=== PATIENT | female | born 1950 | race African-American/Black ===

== ENCOUNTER 2024-03-21 15:39 | Inpatient (IN) | payer BC, MEDICARE ==
[~2024-03-21] VITALS: Ht 167.6 cm; Wt 132.4 kg
[2024-03-21 17:53] LABS: DIFFERENTIAL COMMENT 1; HEMATOCRIT. 42.8 % (36.0-48.0); HEMOGLOBIN. 13.7 g/dL (12.0-16.0); MEAN CORPUSCULAR HEMOGLOBIN 27.9 pg (28.0-32.0); MEAN CORPUSCULAR HGB CONC 32.2 g/dL (31.0-37.0); MEAN CORPUSCULAR VOLUME 86.9 fL (81.0-99.0); MEAN PLATELET VOLUME 9.3 fl (7.4-10.4); PLATELET 215 x1000/uL (130-400); RED BLOOD CELL COUNT 4.92 mill/uL (4.2-5.4); RED CELL DISTRIBUTION WIDTH 14.8 % (11.6-14.6)
[2024-03-21 17:55] LABS: CHLORIDE 109 mEq/L (98-107); POTASSIUM 3.6 mEq/L (3.5-5.1)
[2024-03-21 17:56] LABS: CARBON DIOXIDE 25 mEq/L (21-32); SODIUM 142 mEq/L (136-145)
[2024-03-21 17:57] LABS: CALCIUM 9.7 mg/dL (8.7-10.4)
[2024-03-21] MEDS: ACETAMINOPHEN 325MG TABLET PO ONE (17:58)
[2024-03-21] MEDS: LIDOCAINE 5% PATCH TOP SCH (17:58)
[2024-03-21 18:01] LABS: CREATININE 1.1 mg/dL (0.6-1.0); GLUCOSE 111 mg/dL (70-105)
[2024-03-21 18:02] LABS: UREA NITROGEN BLOOD 13 mg/dL (9-23)
[2024-03-21 18:03] LABS: ALANINE AMINOTRANSFERASE 19 IU/L (10-49); ALBUMIN 4.3 g/dL (3.2-4.8); ASPARTATE AMINOTRANSFERASE 51 IU/L (<34)
[2024-03-21 18:04] LABS: BILIRUBIN TOTAL 1.3 mg/dL (0.1-1.0); CREATINE KINASE > 1300 IU/L (34-145); PROTEIN TOTAL 8.1 g/dL (6.0-8.3)
[2024-03-21] MEDS ORDERED: SODIUM CHLORIDE 0.9% 1,000 ML IV ONE (18:15)
[2024-03-21 18:20] LABS: PLATELET ESTIMATE NORMAL
[2024-03-21 18:21] LABS: ANISOCYTOSIS 1+
[2024-03-22 04:00] VITALS: BP 144/59; PULSE 73; RESP 19; TEMP 35.78064; TEMP 35.8064; O2SAT 100
[2024-03-22] MEDS ORDERED: IPRATROPIUM/ALBUTEROL 0.5-3(2.5)MG/3ML NEB HHN PRN (07:00)
[2024-03-22] MEDS ORDERED: ONDANSETRON HCL 4MG/2ML INJ IV PRN (07:00)
[2024-03-22] MEDS ORDERED: CLONIDINE 0.1MG TABLET PO PRN (07:00)
[2024-03-22] MEDS ORDERED: ACETAMINOPHEN 325MG TABLET PO PRN (07:00)
[2024-03-22] MEDS ORDERED: DOCUSATE SODIUM 100MG CAPSULE PO PRN (07:00)
[2024-03-22 08:00] VITALS: BP 116/53; PULSE 72; RESP 18; TEMP 37.503; O2SAT 100
[2024-03-22] MEDS: SODIUM CHLORIDE 0.9% 1,000 ML IV SCH (08:00)
[2024-03-22 11:56] LABS: CHLORIDE 109 mEq/L (98-107); POTASSIUM 3.4 mEq/L (3.5-5.1); SODIUM 141 mEq/L (136-145)
[2024-03-22 11:57] LABS: CARBON DIOXIDE 25 mEq/L (21-32)
[2024-03-22 11:58] LABS: CALCIUM 9.3 mg/dL (8.7-10.4)
[2024-03-22 12:00] VITALS: BP 115/51; PULSE 68; RESP 18; TEMP 37.89192; O2SAT 100
[2024-03-22 12:02] LABS: GLUCOSE 123 mg/dL (70-105); UREA NITROGEN BLOOD 13 mg/dL (9-23)
[2024-03-22 12:15] LABS: CREATINE KINASE 2767 IU/L (34-145)
[2024-03-22 12:22] LABS: HEPATITIS B SURFACE ANTIGEN NEGATIVE (Negative)
[2024-03-22 12:43] LABS: HEPATITIS C AB NON REACTIVE (Neg) (Negative)
[2024-03-22 16:00] VITALS: BP 138/55; PULSE 75; RESP 18; TEMP 36.78072; O2SAT 100
[2024-03-22 17:02] LABS: BASOPHILS % 0.2 % (0.0-2.0); EOSINOPHILS % 2.4 % (0.0-5.0); HEMATOCRIT. 37.6 % (36.0-48.0); HEMOGLOBIN. 11.8 g/dL (12.0-16.0); LYMPHOCYTES % 16.2 % (20.0-50.0); MEAN CORPUSCULAR HEMOGLOBIN 27.7 pg (28.0-32.0); MEAN CORPUSCULAR HGB CONC 31.5 g/dL (31.0-37.0); MEAN CORPUSCULAR VOLUME 87.9 fL (81.0-99.0); MEAN PLATELET VOLUME 9.5 fl (7.4-10.4); MONOCYTES % 8.8 % (2.0-8.0); NEUTROPHILS % 72.4 % (40.0-76.0); PLATELET 192 x1000/uL (130-400); RED BLOOD CELL COUNT 4.27 mill/uL (4.2-5.4); RED CELL DISTRIBUTION WIDTH 14.9 % (11.6-14.6); WHITE BLOOD COUNT 11.9 x1000/uL (4.5-11.0)
[2024-03-22 17:31] LABS: CREATINE KINASE 2282 IU/L (34-145)
[2024-03-22 20:00] VITALS: BP 144/43; PULSE 76; RESP 20; TEMP 36.72516; O2SAT 96
[2024-03-22] MEDS: POTASSIUM CHLORIDE 20MEQ TABLET SR PO NR (21:25)
[2024-03-23] VITALS: BP 141/49; PULSE 66; RESP 20; TEMP 36.22512; O2SAT 98
[2024-03-23 04:00] VITALS: BP 147/53; PULSE 62; RESP 20; TEMP 37.28076; O2SAT 100
[2024-03-23 08:00] VITALS: BP 150/88; PULSE 66; RESP 18; TEMP 36.9474; O2SAT 98
[2024-03-23 09:12] LABS: CLARITY URINE CLEAR (CLEAR); COLOR URINE YELLOW (YELLOW); GLUCOSE URINE NEGATIVE (NEGATIVE); KETONES URINE NEGATIVE (NEGATIVE); LEUKOCYTE ESTERASE URINE 1+ (NEGATIVE); NITRITE URINE NEGATIVE (NEGATIVE); OCCULT BLOOD URINE NEGATIVE (NEGATIVE); PH URINE 5.5 (4.5-8.0); PROTEIN URINE NEGATIVE (NEGATIVE); SPECIFIC GRAVITY URINE 1.015 (1.005-1.030); UROBILINOGEN URINE 0.2 E.U./dL (0.2-1.0)
[2024-03-23 10:58] LABS: SQUAMOUS EPITHELIAL CELL URINE 1+ /lpf (RARE/1+)
[2024-03-23 10:59] LABS: BACTERIA URINE TRACE
[2024-03-23 11:02] LABS: RBC URINE 0-2 /hpf (0-2)
[2024-03-23 12:00] VITALS: BP 113/43; PULSE 70; RESP 18; TEMP 36.50292; O2SAT 98
[2024-03-23 12:55] LABS: BASOPHILS % 0.4 % (0.0-2.0); EOSINOPHILS % 2.2 % (0.0-5.0); HEMATOCRIT. 38.3 % (36.0-48.0); HEMOGLOBIN. 12.1 g/dL (12.0-16.0); LYMPHOCYTES % 17.9 % (20.0-50.0); MEAN CORPUSCULAR HEMOGLOBIN 27.4 pg (28.0-32.0); MEAN CORPUSCULAR HGB CONC 31.6 g/dL (31.0-37.0); MEAN CORPUSCULAR VOLUME 86.9 fL (81.0-99.0); MEAN PLATELET VOLUME 9.6 fl (7.4-10.4); MONOCYTES % 8.1 % (2.0-8.0); NEUTROPHILS % 71.4 % (40.0-76.0); PLATELET 190 x1000/uL (130-400); RED BLOOD CELL COUNT 4.41 mill/uL (4.2-5.4); RED CELL DISTRIBUTION WIDTH 15.2 % (11.6-14.6); WHITE BLOOD COUNT 10.4 x1000/uL (4.5-11.0)
[2024-03-23 13:12] LABS: CHLORIDE 110 mEq/L (98-107); POTASSIUM 4.2 mEq/L (3.5-5.1); SODIUM 141 mEq/L (136-145)
[2024-03-23 13:13] LABS: CALCIUM 9.3 mg/dL (8.7-10.4); CARBON DIOXIDE 25 mEq/L (21-32)
[2024-03-23 13:18] LABS: GLUCOSE 145 mg/dL (70-105); UREA NITROGEN BLOOD 12 mg/dL (9-23)
[2024-03-23 13:20] LABS: CREATINE KINASE 1233 IU/L (34-145)
[2024-03-23 16:00] VITALS: BP 134/95; PULSE 65; RESP 18; TEMP 37.2252; O2SAT 98
[2024-03-23 20:00] VITALS: BP 136/56; PULSE 67; RESP 20; TEMP 37.11408; O2SAT 100
[2024-03-24] VITALS: BP 146/55; PULSE 64; RESP 20; TEMP 36.72516; O2SAT 96
[2024-03-24 08:00] VITALS: BP 142/51; PULSE 64; RESP 18; TEMP 36.50292; O2SAT 99
[2024-03-24 08:39] LABS: CHLORIDE 111 mEq/L (98-107); POTASSIUM 4.2 mEq/L (3.5-5.1); SODIUM 143 mEq/L (136-145)
[2024-03-24 08:40] LABS: BASOPHILS % 0.4 % (0.0-2.0); CALCIUM 9.1 mg/dL (8.7-10.4); CARBON DIOXIDE 27 mEq/L (21-32); EOSINOPHILS % 2.1 % (0.0-5.0); HEMATOCRIT. 37.9 % (36.0-48.0); HEMOGLOBIN. 12.1 g/dL (12.0-16.0); LYMPHOCYTES % 22.9 % (20.0-50.0); MEAN CORPUSCULAR HEMOGLOBIN 27.6 pg (28.0-32.0); MEAN CORPUSCULAR HGB CONC 31.9 g/dL (31.0-37.0); MEAN CORPUSCULAR VOLUME 86.5 fL (81.0-99.0); MEAN PLATELET VOLUME 9.1 fl (7.4-10.4); MONOCYTES % 8.8 % (2.0-8.0); NEUTROPHILS % 65.8 % (40.0-76.0); PLATELET 173 x1000/uL (130-400); RED BLOOD CELL COUNT 4.38 mill/uL (4.2-5.4); RED CELL DISTRIBUTION WIDTH 15.1 % (11.6-14.6); WHITE BLOOD COUNT 8.9 x1000/uL (4.5-11.0)
[2024-03-24 08:45] LABS: CREATININE 0.9 mg/dL (0.6-1.0); GLUCOSE 104 mg/dL (70-105); UREA NITROGEN BLOOD 12 mg/dL (9-23)
[2024-03-24 08:47] LABS: CREATINE KINASE 652 IU/L (34-145); PHOSPHORUS 2.5 mg/dL (2.5-4.9)
[2024-03-24 12:00] VITALS: BP 134/63; PULSE 62; RESP 17; TEMP 36.78072; O2SAT 98
[2024-03-24 16:00] VITALS: BP 141/51; PULSE 64; RESP 18; TEMP 36.78072; O2SAT 98
[2024-03-24 20:00] VITALS: BP 132/60; PULSE 68; RESP 18; TEMP 36.28068; O2SAT 100
[2024-03-25] VITALS: BP 149/55; PULSE 65; RESP 18; TEMP 37.05852; O2SAT 100
[2024-03-25 04:00] VITALS: BP 160/54; PULSE 63; RESP 18; TEMP 36.3918; O2SAT 100
[2024-03-25 08:00] VITALS: BP 152/53; PULSE 61; RESP 20; TEMP 36.72516; O2SAT 100
[2024-03-25 09:07] LABS: BASOPHILS % 0.5 % (0.0-2.0); EOSINOPHILS % 1.9 % (0.0-5.0); HEMATOCRIT. 38.7 % (36.0-48.0); HEMOGLOBIN. 12.2 g/dL (12.0-16.0); LYMPHOCYTES % 25.3 % (20.0-50.0); MEAN CORPUSCULAR HEMOGLOBIN 28.4 pg (28.0-32.0); MEAN CORPUSCULAR HGB CONC 31.5 g/dL (31.0-37.0); MEAN PLATELET VOLUME 8.9 fl (7.4-10.4); MONOCYTES % 7.6 % (2.0-8.0); NEUTROPHILS % 64.7 % (40.0-76.0); PLATELET 172 x1000/uL (130-400); RED CELL DISTRIBUTION WIDTH 15.1 % (11.6-14.6)
[2024-03-25 09:14] LABS: CHLORIDE 109 mEq/L (98-107); POTASSIUM 4.1 mEq/L (3.5-5.1); SODIUM 140 mEq/L (136-145)
[2024-03-25 09:15] LABS: CALCIUM 9.3 mg/dL (8.7-10.4); CARBON DIOXIDE 25 mEq/L (21-32)
[2024-03-25 09:20] LABS: CREATINE KINASE 339 IU/L (34-145); GLUCOSE 99 mg/dL (70-105); UREA NITROGEN BLOOD 10 mg/dL (9-23)
[2024-03-25 09:22] LABS: PHOSPHORUS 2.8 mg/dL (2.5-4.9)
[2024-03-25 11:53] VITALS: BP 142/48; PULSE 66; RESP 20; TEMP 36.72516; O2SAT 96
[2024-03-25] MEDS: ENOXAPARIN 150MG/ML SYR SUBCUT NR (12:00)
[2024-03-25 15:46] VITALS: BP 132/87; PULSE 69; RESP 20; TEMP 36.72516; O2SAT 96
[2024-03-25 18:51] LABS: PROTHROMBIN TIME 11.2 sec (9.6-11.0)
[2024-03-25 20:00] VITALS: BP 119/49; PULSE 69; RESP 19; TEMP 37.05852; O2SAT 100
[2024-03-25] MEDS: ERGOCALCIFEROL 50000UNITS CAPSULE PO SCH (21:16)
[2024-03-26] VITALS: BP 114/48; PULSE 64; RESP 19; TEMP 36.44736; O2SAT 98
[2024-03-26] MEDS: ENOXAPARIN 150MG/ML SYR SUBCUT SCH (00:34)
[2024-03-26 04:00] VITALS: BP 118/49; PULSE 65; RESP 19; TEMP 36.61404; O2SAT 100
[2024-03-26 08:00] VITALS: BP 139/69; PULSE 63; RESP 18; TEMP 36.72516; O2SAT 98
[2024-03-26 09:02] LABS: CHLORIDE 111 mEq/L (98-107); POTASSIUM 4.1 mEq/L (3.5-5.1); SODIUM 142 mEq/L (136-145)
[2024-03-26 09:03] LABS: CALCIUM 8.8 mg/dL (8.7-10.4); CARBON DIOXIDE 25 mEq/L (21-32)
[2024-03-26 09:05] LABS: BASOPHILS % 0.4 % (0.0-2.0); EOSINOPHILS % 2.6 % (0.0-5.0); HEMATOCRIT. 38.1 % (36.0-48.0); HEMOGLOBIN. 11.9 g/dL (12.0-16.0); LYMPHOCYTES % 25.8 % (20.0-50.0); MEAN CORPUSCULAR HEMOGLOBIN 27.4 pg (28.0-32.0); MEAN CORPUSCULAR HGB CONC 31.2 g/dL (31.0-37.0); MEAN CORPUSCULAR VOLUME 87.7 fL (81.0-99.0); MEAN PLATELET VOLUME 8.9 fl (7.4-10.4); MONOCYTES % 9.2 % (2.0-8.0); PLATELET 171 x1000/uL (130-400); RED BLOOD CELL COUNT 4.34 mill/uL (4.2-5.4); RED CELL DISTRIBUTION WIDTH 14.7 % (11.6-14.6); WHITE BLOOD COUNT 8.6 x1000/uL (4.5-11.0)
[2024-03-26 09:08] LABS: GLUCOSE 101 mg/dL (70-105); UREA NITROGEN BLOOD 11 mg/dL (9-23)
[2024-03-26 09:09] LABS: CREATINE KINASE 188 IU/L (34-145)
[2024-03-26 09:10] LABS: PHOSPHORUS 2.7 mg/dL (2.5-4.9)
[2024-03-26] MEDS: LEVOFLOXACIN 250MG TABLET PO SCH (10:36)
[2024-03-26 12:00] VITALS: BP 142/50; PULSE 67; RESP 18; TEMP 36.83628; O2SAT 96
[2024-03-26 16:00] VITALS: BP 125/47; PULSE 60; RESP 18; TEMP 36.61404; O2SAT 94
[2024-03-26 20:00] VITALS: BP 116/56; PULSE 66; RESP 18; TEMP 36.3918; O2SAT 100
[2024-03-27] VITALS: BP 124/58; PULSE 77; RESP 18; TEMP 37.11408; O2SAT 99
[2024-03-27 04:00] VITALS: BP 148/62; PULSE 62; RESP 18; TEMP 36.50292; O2SAT 96
[2024-03-27 08:00] VITALS: BP 171/64; PULSE 59; RESP 19; TEMP 36.83628; O2SAT 99
[2024-03-27 12:00] VITALS: BP 133/48; PULSE 62; RESP 18; TEMP 36.3918; O2SAT 97
[2024-03-27 16:00] VITALS: BP 132/49; PULSE 64; RESP 18; TEMP 36.89184; O2SAT 97
[2024-03-27 20:00] VITALS: BP 135/67; PULSE 64; RESP 19; TEMP 36.50292; O2SAT 99
[2024-03-28] VITALS: BP 130/75; PULSE 78; RESP 19; TEMP 37.05852; O2SAT 98
[2024-03-28 04:00] VITALS: BP 140/68; PULSE 68; RESP 19; TEMP 36.50292; O2SAT 99
[2024-03-28 08:00] VITALS: BP 142/59; PULSE 56; RESP 19; TEMP 36.78072; O2SAT 97
[2024-03-28 16:00] VITALS: BP 125/52; PULSE 62; RESP 17; TEMP 35.89176; O2SAT 98
[2024-03-28 20:00] VITALS: BP 123/56; PULSE 61; RESP 19; TEMP 36.50292; O2SAT 97
[2024-03-29] VITALS: BP 118/62; PULSE 72; RESP 19; TEMP 37.16964; O2SAT 98
[2024-03-29 04:00] VITALS: BP_SYST 128; BP_SYST 145; BP_DIAS 64; BP_DIAS 68; PULSE 74; RESP 19; TEMP 37.11408; O2SAT 97
[2024-03-29 12:00] VITALS: BP 126/51; PULSE 61; RESP 18; TEMP 36.3918; O2SAT 100
[2024-03-29 16:00] VITALS: BP 129/54; PULSE 63; RESP 19; TEMP 36.50292; O2SAT 98
[2024-03-30] VITALS: BP 139/56; PULSE 61; RESP 19; TEMP 37.11408; O2SAT 98
[2024-03-30 04:00] VITALS: BP 130/51; PULSE 87; RESP 18; TEMP 36.89184; O2SAT 100
[2024-03-30 08:00] VITALS: BP 147/52; PULSE 53; RESP 19; TEMP 36.3918; O2SAT 97
[2024-03-30 12:00] VITALS: BP 128/51; PULSE 60; RESP 20; TEMP 36.50292; O2SAT 98
[2024-03-30 16:00] VITALS: BP 121/58; PULSE 61; RESP 19; TEMP 36.28068; O2SAT 99
[2024-03-30 20:00] VITALS: BP 158/50; PULSE 64; RESP 20; TEMP 36.72516; O2SAT 100
[2024-03-31] VITALS: BP 118/55; PULSE 83; RESP 20; TEMP 35.66952; O2SAT 95
[2024-03-31 04:00] VITALS: BP 141/49; PULSE 60; RESP 20; TEMP 35.78064; O2SAT 96
[2024-03-31 11:39] LABS: VITAMIN B12 SERUM 432 pg/mL (211-911)
[2024-03-31 12:00] VITALS: BP 134/55; PULSE 56; RESP 18; TEMP 36.50292; O2SAT 95
[2024-03-31] MEDS: ACETAMINOPHEN 325MG TABLET PO PRN (15:32)
[2024-03-31 16:00] VITALS: BP 132/49; PULSE 64; RESP 18; TEMP 36.3918; O2SAT 97
[2024-03-31 20:00] VITALS: BP 145/50; PULSE 67; RESP 18; TEMP 36.33624; O2SAT 99
[2024-04-01] VITALS: BP 133/40; PULSE 57; RESP 19; TEMP 36.55848; O2SAT 98
[2024-04-01 04:00] VITALS: BP 145/58; PULSE 60; RESP 19; TEMP 36.3918; O2SAT 99
[2024-04-01 08:00] VITALS: BP 36/50; PULSE 58; RESP 17; TEMP 36.50292; O2SAT 97
[2024-04-01 08:35] LABS: BASOPHILS % 0.5 % (0.0-2.0); EOSINOPHILS % 2.3 % (0.0-5.0); HEMATOCRIT. 40.8 % (36.0-48.0); LYMPHOCYTES % 28.4 % (20.0-50.0); MEAN CORPUSCULAR HEMOGLOBIN 27.8 pg (28.0-32.0); MEAN CORPUSCULAR HGB CONC 31.8 g/dL (31.0-37.0); MEAN CORPUSCULAR VOLUME 87.6 fL (81.0-99.0); MEAN PLATELET VOLUME 9.1 fl (7.4-10.4); MONOCYTES % 7.8 % (2.0-8.0); PLATELET 250 x1000/uL (130-400); RED BLOOD CELL COUNT 4.66 mill/uL (4.2-5.4); WHITE BLOOD COUNT 7.9 x1000/uL (4.5-11.0)
[2024-04-01 08:44] LABS: CARBON DIOXIDE 25 mEq/L (21-32); CHLORIDE 109 mEq/L (98-107); SODIUM 141 mEq/L (136-145)
[2024-04-01 08:45] LABS: CALCIUM 9.2 mg/dL (8.7-10.4)
[2024-04-01 08:50] LABS: GLUCOSE 99 mg/dL (70-105); UREA NITROGEN BLOOD 16 mg/dL (9-23)
[2024-04-01 08:52] LABS: CREATINE KINASE 60 IU/L (34-145)
[2024-04-01] MEDS: CYANOCOBALAMIN 1000MCG/ML VIAL IM SCH (11:17)
[2024-04-01 12:00] VITALS: BP 125/47; PULSE 55; RESP 18; TEMP 35.89176; O2SAT 100
[2024-04-01 12:50] LABS: FOLIC ACID (FOLATE) SERUM 12.47 ng/mL (>5.38)
[2024-04-01 16:00] VITALS: BP 133/45; PULSE 60; RESP 17; TEMP 35.8362; O2SAT 98
[2024-04-01 20:00] VITALS: BP 132/56; PULSE 64; RESP 19; TEMP 36.78072; O2SAT 99
[2024-04-02] VITALS: BP 132/46; PULSE 60; RESP 19; TEMP 36.28068; O2SAT 97
[2024-04-02 04:00] VITALS: BP 123/46; PULSE 60; RESP 19; TEMP 36.28068; O2SAT 99
[2024-04-02 08:00] VITALS: BP 115/49; PULSE 48; RESP 20; TEMP 36.28068; O2SAT 98
[2024-04-02 12:00] VITALS: BP 129/50; PULSE 62; RESP 20; TEMP 36.61404; O2SAT 97
[2024-04-02 16:00] VITALS: BP 118/50; PULSE 67; RESP 20; TEMP 36.44736; O2SAT 98
[2024-04-02 20:00] VITALS: BP 128/45; PULSE 62; RESP 19; TEMP 36.3918; O2SAT 96
[2024-04-03] VITALS: BP 140/49; PULSE 56; RESP 19; TEMP 36.3918; O2SAT 100
[2024-04-03 04:00] VITALS: BP 138/48; PULSE 56; RESP 19; TEMP 36.55848; O2SAT 100
[2024-04-03 08:00] VITALS: BP 136/48; PULSE 56; RESP 20; TEMP 36.33624; O2SAT 100
[2024-04-03 10:38] LABS: BASOPHILS % 0.4 % (0.0-2.0); EOSINOPHILS % 1.7 % (0.0-5.0); HEMATOCRIT. 38.1 % (36.0-48.0); HEMOGLOBIN. 12.2 g/dL (12.0-16.0); LYMPHOCYTES % 22.9 % (20.0-50.0); MEAN CORPUSCULAR HEMOGLOBIN 28.1 pg (28.0-32.0); MEAN CORPUSCULAR VOLUME 87.9 fL (81.0-99.0); MEAN PLATELET VOLUME 8.7 fl (7.4-10.4); MONOCYTES % 6.9 % (2.0-8.0); NEUTROPHILS % 68.1 % (40.0-76.0); PLATELET 231 x1000/uL (130-400); RED BLOOD CELL COUNT 4.33 mill/uL (4.2-5.4); RED CELL DISTRIBUTION WIDTH 15.4 % (11.6-14.6); WHITE BLOOD COUNT 8.5 x1000/uL (4.5-11.0)
[2024-04-03 11:01] LABS: CHLORIDE 110 mEq/L (98-107); SODIUM 140 mEq/L (136-145)
[2024-04-03 11:03] LABS: CALCIUM 9.4 mg/dL (8.7-10.4); CARBON DIOXIDE 24 mEq/L (21-32)
[2024-04-03 11:07] LABS: CREATININE 0.9 mg/dL (0.6-1.0)
[2024-04-03 11:08] LABS: GLUCOSE 120 mg/dL (70-105); UREA NITROGEN BLOOD 13 mg/dL (9-23)
[2024-04-03 12:00] VITALS: BP 132/48; PULSE 61; RESP 19; TEMP 36.3918; O2SAT 97
[2024-04-03 16:00] VITALS: BP 148/47; PULSE 61; RESP 19; TEMP 36.3918; O2SAT 100
[2024-04-03 20:00] VITALS: BP 152/51; PULSE 60; RESP 20; TEMP 36.78072; O2SAT 100
[2024-04-04] VITALS: BP 163/51; PULSE 61; RESP 20; TEMP 36.72516; O2SAT 98
[2024-04-04 04:00] VITALS: BP 147/70; PULSE 57; RESP 20; TEMP 36.44736; O2SAT 97
[2024-04-04 08:00] VITALS: BP 138/51; PULSE 60; RESP 20; TEMP 36.61404; O2SAT 97
[2024-04-04 11:38] VITALS: BP 128/49; PULSE 60; RESP 19; TEMP 36.61404; O2SAT 97
[2024-04-04 16:00] VITALS: BP 132/51; PULSE 66; RESP 20; TEMP 36.72516; O2SAT 96
[2024-04-04 20:00] VITALS: BP 119/44; PULSE 58; RESP 18; TEMP 35.94732; O2SAT 95
[2024-04-05] VITALS: BP 127/45; PULSE 61; RESP 18; TEMP 36.00288; O2SAT 97
[2024-04-05 08:00] VITALS: BP 129/47; PULSE 53; RESP 18; TEMP 36.16956; O2SAT 100
[2024-04-05 12:00] VITALS: BP 120/40; PULSE 60; RESP 18; TEMP 36.28068; O2SAT 100
[2024-04-05 16:00] VITALS: BP 121/48; PULSE 57; RESP 18; TEMP 36.50292; O2SAT 100
[2024-04-05 20:00] VITALS: BP 126/41; PULSE 64; RESP 17; TEMP 36.50292; O2SAT 100
[2024-04-06] VITALS: BP 117/69; PULSE 81; RESP 17; TEMP 36.50292; O2SAT 98
[2024-04-06 04:00] VITALS: BP 146/42; PULSE 63; RESP 18; TEMP 37.11408; O2SAT 96
[2024-04-06 08:00] VITALS: BP 133/59; PULSE 58; RESP 17; TEMP 36.89184; O2SAT 98
[2024-04-06 12:00] VITALS: BP 96/79; PULSE 72; RESP 18; TEMP 37.00296; O2SAT 99
[2024-04-06 16:40] VITALS: BP 138/45; PULSE 64; RESP 17; TEMP 36.89184; O2SAT 98
[2024-04-06 20:00] VITALS: BP 124/50; PULSE 66; RESP 18; TEMP 36.72516; O2SAT 100
[2024-04-07] VITALS: BP 119/42; PULSE 60; RESP 18; TEMP 36.55848; O2SAT 100
[2024-04-07 04:00] VITALS: BP 124/43; PULSE 58; RESP 18; TEMP 36.72516; O2SAT 100
[2024-04-07 08:00] VITALS: BP 116/40; PULSE 76; RESP 18; TEMP 36.28068; O2SAT 96
[2024-04-07 12:00] VITALS: BP 132/62; PULSE 66; RESP 18; TEMP 36.114; O2SAT 95
[2024-04-07 16:00] VITALS: BP 122/64; PULSE 77; RESP 18; TEMP 36.114; O2SAT 96
[2024-04-07 20:00] VITALS: BP 129/43; PULSE 60; RESP 20; TEMP 36.61404; O2SAT 96
[2024-04-08] VITALS: BP 133/55; PULSE 61; RESP 20; TEMP 36.72516; O2SAT 100
[2024-04-08 04:00] VITALS: BP 140/46; PULSE 56; RESP 20; TEMP 36.61404; O2SAT 98
[2024-04-08 08:00] VITALS: BP 134/47; PULSE 54; RESP 20; TEMP 36.114; O2SAT 98
[2024-04-08 12:00] VITALS: BP 123/48; PULSE 57; RESP 20; TEMP 36.28068; O2SAT 99
[2024-04-08 16:00] VITALS: BP 121/49; PULSE 54; RESP 19; TEMP 36.114; O2SAT 98
[2024-04-08 20:00] VITALS: BP 110/42; PULSE 63; RESP 20; TEMP 35.72508; O2SAT 100
[2024-04-09] VITALS: BP 130/49; PULSE 65; RESP 20; TEMP 36.50292; O2SAT 100
[2024-04-09 04:00] VITALS: BP 126/53; PULSE 58; RESP 20; TEMP 36.72516; O2SAT 95
[2024-04-09 08:00] VITALS: BP 129/48; PULSE 57; RESP 20; TEMP 36.50292; O2SAT 100
[2024-04-09 12:00] VITALS: BP 136/59; PULSE 60; RESP 20; TEMP 37.2252; O2SAT 98
[2024-04-09 16:00] VITALS: BP 132/50; PULSE 59; RESP 20; TEMP 36.28068; O2SAT 100
[2024-04-09 20:00] VITALS: BP 118/43; PULSE 61; RESP 20; TEMP 36.3918; O2SAT 98
[2024-04-10] VITALS: BP 129/45; PULSE 58; RESP 20; TEMP 35.78064; O2SAT 95
[2024-04-10 04:00] VITALS: BP 129/55; PULSE 54; RESP 20; TEMP 35.89176; O2SAT 100
[2024-04-10 08:00] VITALS: BP 131/48; PULSE 54; RESP 19; TEMP 35.2806; O2SAT 98
[2024-04-10 12:00] VITALS: BP 122/44; PULSE 60; RESP 19; TEMP 36.61404; O2SAT 100
[2024-04-10 16:00] VITALS: BP 122/44; PULSE 62; RESP 19; TEMP 36.61404; O2SAT 96
[2024-04-10 20:00] VITALS: BP 120/45; PULSE 83; RESP 18; TEMP 36.28068; O2SAT 96
[2024-04-11] VITALS: BP 114/42; PULSE 56; RESP 18; TEMP 37.05852; O2SAT 96
[2024-04-11 04:00] VITALS: BP 130/52; PULSE 50; RESP 18; TEMP 36.83628; O2SAT 98
[2024-04-11 08:00] VITALS: BP 151/55; PULSE 51; RESP 20; TEMP 35.89176; O2SAT 99
[2024-04-11 12:00] VITALS: BP 125/50; PULSE 56; RESP 20; TEMP 35.50284; O2SAT 99
[2024-04-11 16:00] VITALS: BP 120/50; PULSE 60; RESP 20; TEMP 37.16964; O2SAT 98
[2024-04-11] MEDS: ENOXAPARIN 150MG/ML SYR SUBCUT SCH (22:30)
[2024-04-12] VITALS: BP 141/47; PULSE 58; RESP 20; TEMP 35.89176; O2SAT 96
[2024-04-12 04:00] VITALS: BP 169/58; PULSE 61; RESP 18; TEMP 35.78064; O2SAT 97
[2024-04-12 08:00] VITALS: BP 110/73; PULSE 61; RESP 18; TEMP 36.72516; O2SAT 97
[2024-04-12 16:00] VITALS: BP 125/51; PULSE 66; RESP 17; TEMP 36.61404; O2SAT 97
[2024-04-12 20:00] VITALS: BP 118/45; PULSE 87; RESP 19; TEMP 36.3918; O2SAT 98
[2024-04-13 04:00] VITALS: BP 126/52; PULSE 62; RESP 18; TEMP 36.44736; O2SAT 97
[2024-04-13 08:00] VITALS: BP 130/45; PULSE 56; RESP 19; TEMP 35.72508; O2SAT 98
[2024-04-13 16:00] VITALS: BP 114/78; PULSE 59; RESP 19; TEMP 36.50292; O2SAT 99
[2024-04-13 20:00] VITALS: BP 119/43; PULSE 61; RESP 17; TEMP 36.3918; O2SAT 99
[2024-04-14] VITALS: BP 123/75; PULSE 75; RESP 19; TEMP 36.89184; O2SAT 100
[2024-04-14 04:00] VITALS: BP 136/83; PULSE 81; RESP 17; TEMP 36.114; O2SAT 99
[2024-04-14 08:00] VITALS: BP 141/48; PULSE 56; RESP 18; TEMP 36.50292; O2SAT 95
[2024-04-14 12:00] VITALS: BP 136/49; PULSE 56; RESP 19; TEMP 36.28068; O2SAT 100
[2024-04-14 20:00] VITALS: BP 110/44; PULSE 58; RESP 19; TEMP 36.55848; O2SAT 99
[2024-04-15] VITALS: BP 123/53; PULSE 57; RESP 19; TEMP 36.72516; O2SAT 98
[2024-04-15 04:00] VITALS: BP 138/49; PULSE 53; RESP 19; TEMP 36.6696; O2SAT 98
[2024-04-15 08:00] VITALS: BP 134/80; PULSE 56; RESP 19; TEMP 36.3918; O2SAT 99
[2024-04-15 12:00] VITALS: BP 120/54; PULSE 58; RESP 18; TEMP 35.72508; O2SAT 99
[2024-04-15 16:00] VITALS: BP 126/49; PULSE 62; RESP 18; TEMP 36.3918; O2SAT 100
[2024-04-15 20:00] VITALS: BP 115/46; PULSE 83; RESP 18; TEMP 36.28068; O2SAT 99
[2024-04-16] VITALS: BP 119/42; PULSE 60; RESP 18; TEMP 35.72508; O2SAT 99
[2024-04-16 04:00] VITALS: BP 137/52; PULSE 60; RESP 18; TEMP 35.33616; O2SAT 99
[2024-04-16 08:00] VITALS: BP 120/44; PULSE 54; RESP 20; TEMP 36.55848; O2SAT 97
[2024-04-16 12:00] VITALS: BP 117/50; PULSE 56; RESP 20; TEMP 36.3918; O2SAT 98
[2024-04-16 16:00] VITALS: BP 115/79; PULSE 53; RESP 20; TEMP 35.94732; O2SAT 100
[2024-04-16 17:33] VITALS: BP 117/50; PULSE 56; TEMP 97.5; O2SAT 98
== END 2024-04-16 18:46 | DRG 558 ==
LOC: ER 15:39 → EDBEDREQ 22:55 → 6EST 03-22 03:29 → UNDOADMIN 03-22 03:29 → UNDODISIN 04-16 18:39
PROVIDERS: ADMIT Family Medicine Adult Medicine; ATTEND Family Medicine Adult Medicine
DX: M62.82 Rhabdomyolysis (principal); G82.20 Paraplegia, unspecified; I82.402 Acute embolism and thrombosis of unspecified deep veins of left lower extremity; Z68.42 Body mass index [BMI] 45.0-49.9, adult; N39.0 Urinary tract infection, site not specified; N17.9 Acute kidney failure, unspecified; I82.412 Acute embolism and thrombosis of left femoral vein; I82.432 Acute embolism and thrombosis of left popliteal vein; M17.0 Bilateral primary osteoarthritis of knee; M48.061 Spinal stenosis, lumbar region without neurogenic claudication; E66.01 Morbid (severe) obesity due to excess calories; M54.50 Low back pain, unspecified; E55.9 Vitamin D deficiency, unspecified; R26.9 Unspecified abnormalities of gait and mobility; G62.9 Polyneuropathy, unspecified; E53.8 Deficiency of other specified B group vitamins; R20.0 Anesthesia of skin; R53.81 Other malaise; G89.29 Other chronic pain; I10 Essential (primary) hypertension; Z88.8 Allergy status to other drugs, medicaments and biological substances
CPT/HCPCS: 36415; 72148; 73502; 73560; 80048; 80053; 81003; 82306; 82550; 82607; 82746; 83036; 83735; 84100; 84443; 85025; 86705; 87340; 93005; 93970; 97110; 97116; 97162; 97166; 97530; 97535; 99291; J1650; J3420; J7030

== ENCOUNTER 2024-04-16 18:45 | Inpatient (IN) | payer BC ==
[~2024-04-16] VITALS: Ht 167.6 cm; Wt 143.8 kg
[2024-04-16 19:00] VITALS: BP 136/78; PULSE 78; RESP 18; TEMP 36.55848; O2SAT 98
[2024-04-16 19:30] VITALS: BP 136/78; PULSE 78; RESP 18; TEMP 36.55848; O2SAT 98
[2024-04-16] MEDS ORDERED: ACETAMINOPHEN 325MG TABLET PO PRN (19:30)
[2024-04-16] MEDS ORDERED: ONDANSETRON HCL 4MG/2ML INJ IV PRN (19:30)
[2024-04-16] MEDS ORDERED: CLONIDINE 0.1MG TABLET PO PRN (19:30)
[2024-04-16] MEDS ORDERED: DOCUSATE SODIUM 100MG CAPSULE PO PRN (19:30)
[2024-04-16 20:00] VITALS: BP 136/78; PULSE 78; RESP 18; TEMP 36.5848
[2024-04-16] MEDS: ENOXAPARIN 150MG/ML SYR SUBCUT SCH ×2 (21:31→22:12)
[2024-04-17 07:21] LABS: CHLORIDE 111 mEq/L (98-107); POTASSIUM 4.3 mEq/L (3.5-5.1); SODIUM 142 mEq/L (136-145)
[2024-04-17 07:22] LABS: CARBON DIOXIDE 23 mEq/L (21-32)
[2024-04-17 07:23] LABS: CALCIUM 9.3 mg/dL (8.7-10.4)
[2024-04-17 07:27] LABS: CREATININE 0.9 mg/dL (0.6-1.0); GLUCOSE 84 mg/dL (70-105)
[2024-04-17 07:28] LABS: UREA NITROGEN BLOOD 10 mg/dL (9-23)
[2024-04-17 07:29] LABS: ALANINE AMINOTRANSFERASE 22 IU/L (10-49); ALBUMIN 3.1 g/dL (3.2-4.8); ASPARTATE AMINOTRANSFERASE 17 IU/L (<34)
[2024-04-17 07:30] LABS: BILIRUBIN TOTAL 0.3 mg/dL (0.1-1.0); PROTEIN TOTAL 6.2 g/dL (6.0-8.3)
[2024-04-17 08:00] VITALS: BP 138/50; PULSE 61; RESP 18; TEMP 36.61404; O2SAT 98
[2024-04-17 10:13] LABS: BASOPHILS % 0.5 % (0.0-2.0); EOSINOPHILS % 3.1 % (0.0-5.0); HEMATOCRIT. 39.5 % (36.0-48.0); HEMOGLOBIN. 12.8 g/dL (12.0-16.0); LYMPHOCYTES % 33.1 % (20.0-50.0); MEAN CORPUSCULAR HEMOGLOBIN 28.2 pg (28.0-32.0); MEAN CORPUSCULAR HGB CONC 32.4 g/dL (31.0-37.0); MEAN CORPUSCULAR VOLUME 86.9 fL (81.0-99.0); MEAN PLATELET VOLUME 10.6 fl (7.4-10.4); MONOCYTES % 7.8 % (2.0-8.0); NEUTROPHILS % 55.5 % (40.0-76.0); PLATELET 152 x1000/uL (130-400); RED BLOOD CELL COUNT 4.54 mill/uL (4.2-5.4); RED CELL DISTRIBUTION WIDTH 15.4 % (11.6-14.6); WHITE BLOOD COUNT 9.1 x1000/uL (4.5-11.0)
[2024-04-17] MEDS: APIXABAN 5 MG TABLET PO SCH (16:31)
[2024-04-17 20:00] VITALS: BP 136/43; PULSE 60; RESP 19; TEMP 36.33624; O2SAT 99
[2024-04-18 08:00] VITALS: BP 123/91; PULSE 60; RESP 19; TEMP 36.61404; O2SAT 99
[2024-04-18 19:45] VITALS: BP 107/33; PULSE 58; RESP 20; TEMP 36.05844; O2SAT 98
[2024-04-19 08:00] VITALS: BP 145/52; PULSE 54; RESP 20; TEMP 36.05844; O2SAT 100
[2024-04-19] MEDS: CYANOCOBALAMIN 1000MCG/ML VIAL IM SCH (08:24)
[2024-04-19 20:00] VITALS: BP 125/42; PULSE 68; RESP 17; TEMP 36.72516; O2SAT 95
[2024-04-20 08:00] VITALS: BP 121/49; PULSE 54; RESP 20; TEMP 36.05844; O2SAT 100
[2024-04-20 20:00] VITALS: BP 116/66; PULSE 64; RESP 18; TEMP 36.114; O2SAT 94
[2024-04-21 08:00] VITALS: BP 123/66; PULSE 55; RESP 20; TEMP 36.22512; O2SAT 99
[2024-04-21] MEDS: POLYETHYLENE GLYCOL 3350 (17GM) 1 DOSE PACK PO SCH (17:30)
[2024-04-21 20:00] VITALS: BP 101/57; PULSE 67; RESP 18; TEMP 37.2252; O2SAT 95
[2024-04-22 08:00] VITALS: BP 133/52; PULSE 65; RESP 20; TEMP 36.55848; O2SAT 98
[2024-04-22] MEDS: ERGOCALCIFEROL 50000UNITS CAPSULE PO SCH (09:08)
[2024-04-22 15:58] LABS: CREATINE KINASE 54 IU/L (34-145)
[2024-04-22 20:00] VITALS: BP 135/52; PULSE 64; RESP 19; TEMP 36.50292; O2SAT 97
[2024-04-23 08:00] VITALS: BP 132/49; PULSE 51; RESP 20; TEMP 35.72508; O2SAT 100
[2024-04-23] MEDS ORDERED: NON FORMULARY MED TOP SCH (19:30)
[2024-04-23 20:00] VITALS: BP 126/44; PULSE 52; RESP 20; TEMP 36.50292; O2SAT 99
[2024-04-24 07:03] LABS: BASOPHILS % 0.5 % (0.0-2.0); EOSINOPHILS % 2.1 % (0.0-5.0); HEMATOCRIT. 39.7 % (36.0-48.0); HEMOGLOBIN. 12.6 g/dL (12.0-16.0); LYMPHOCYTES % 27.4 % (20.0-50.0); MEAN CORPUSCULAR HEMOGLOBIN 28.3 pg (28.0-32.0); MEAN CORPUSCULAR HGB CONC 31.9 g/dL (31.0-37.0); MEAN CORPUSCULAR VOLUME 88.9 fL (81.0-99.0); MEAN PLATELET VOLUME 9.2 fl (7.4-10.4); PLATELET 197 x1000/uL (130-400); RED BLOOD CELL COUNT 4.46 mill/uL (4.2-5.4); RED CELL DISTRIBUTION WIDTH 15.2 % (11.6-14.6); WHITE BLOOD COUNT 8.9 x1000/uL (4.5-11.0)
[2024-04-24 07:07] LABS: CHLORIDE 110 mEq/L (98-107); POTASSIUM 4.4 mEq/L (3.5-5.1); SODIUM 141 mEq/L (136-145)
[2024-04-24 07:08] LABS: CALCIUM 9.6 mg/dL (8.7-10.4); CARBON DIOXIDE 25 mEq/L (21-32)
[2024-04-24 07:13] LABS: GLUCOSE 100 mg/dL (70-105); UREA NITROGEN BLOOD 12 mg/dL (9-23)
[2024-04-24 07:15] LABS: ALANINE AMINOTRANSFERASE 18 IU/L (10-49); ALBUMIN 3.4 g/dL (3.2-4.8); ASPARTATE AMINOTRANSFERASE 15 IU/L (<34); BILIRUBIN TOTAL 0.5 mg/dL (0.1-1.0); PROTEIN TOTAL 6.8 g/dL (6.0-8.3)
[2024-04-24 08:00] VITALS: BP 143/54; PULSE 51; RESP 18; TEMP 36.114; O2SAT 97
[2024-04-24 20:00] VITALS: BP 132/74; PULSE 60; RESP 19; TEMP 36.22512; O2SAT 97
[2024-04-25 08:00] VITALS: BP 117/75; PULSE 53; RESP 20; TEMP 36.3918; O2SAT 99
[2024-04-25 20:00] VITALS: BP 130/59; PULSE 59; RESP 19; TEMP 36.3918; O2SAT 99
[2024-04-26 08:00] VITALS: BP 125/52; PULSE 61; RESP 20; TEMP 36.00288; O2SAT 97
[2024-04-26 20:00] VITALS: BP 135/48; PULSE 63; RESP 20; TEMP 36.33624; O2SAT 98
[2024-04-27 08:00] VITALS: BP 119/69; PULSE 57; RESP 20; TEMP 36.44736; O2SAT 100
[2024-04-27 20:00] VITALS: BP 142/65; PULSE 64; RESP 18; TEMP 36.50292; O2SAT 95
[2024-04-28] VITALS: BP 126/47; PULSE 62; RESP 18; TEMP 36.50292; O2SAT 95
[2024-04-28 08:00] VITALS: BP 116/47; PULSE 68; RESP 20; TEMP 36.05844; O2SAT 96
[2024-04-28] MEDS: POLYVINYL ALCOHOL OPHTH DROPS 15ML BOTHEYE PRN (13:39)
[2024-04-28 20:00] VITALS: BP 119/59; PULSE 73; RESP 18; TEMP 36.78072; O2SAT 98
[2024-04-28] MEDS: ACETAMINOPHEN 325MG TABLET PO PRN (22:59)
[2024-04-29 08:00] VITALS: BP 103/40; PULSE 67; RESP 18; TEMP 36.61404; O2SAT 97
[2024-04-29] MEDS: ERGOCALCIFEROL 50000UNITS CAPSULE PO SCH (08:43)
[2024-04-29 20:00] VITALS: BP 147/52; PULSE 64; RESP 18; TEMP 36.72516; O2SAT 97
[2024-04-30 08:00] VITALS: BP 137/43; PULSE 54; RESP 20; TEMP 36.6696; O2SAT 99
[2024-04-30 20:00] VITALS: BP 134/70; PULSE 57; RESP 20; TEMP 37.28076; O2SAT 100
[2024-05-01 08:00] VITALS: BP 120/39; PULSE 67; RESP 20; TEMP 35.66952; O2SAT 99
[2024-05-01 20:00] VITALS: BP 130/49; PULSE 59; RESP 18; TEMP 36.50292; O2SAT 98
[2024-05-02 05:53] LABS: BASOPHILS % 0.4 % (0.0-2.0); EOSINOPHILS % 1.6 % (0.0-5.0); HEMATOCRIT. 38.3 % (36.0-48.0); HEMOGLOBIN. 12.3 g/dL (12.0-16.0); LYMPHOCYTES % 25.4 % (20.0-50.0); MEAN CORPUSCULAR HEMOGLOBIN 28.1 pg (28.0-32.0); MEAN CORPUSCULAR VOLUME 87.7 fL (81.0-99.0); MEAN PLATELET VOLUME 8.7 fl (7.4-10.4); MONOCYTES % 6.1 % (2.0-8.0); NEUTROPHILS % 66.5 % (40.0-76.0); PLATELET 230 x1000/uL (130-400); RED BLOOD CELL COUNT 4.36 mill/uL (4.2-5.4); RED CELL DISTRIBUTION WIDTH 14.7 % (11.6-14.6); WHITE BLOOD COUNT 10.4 x1000/uL (4.5-11.0)
[2024-05-02 05:58] LABS: CHLORIDE 109 mEq/L (98-107); POTASSIUM 4.1 mEq/L (3.5-5.1); SODIUM 142 mEq/L (136-145)
[2024-05-02 05:59] LABS: CARBON DIOXIDE 25 mEq/L (21-32)
[2024-05-02 06:00] LABS: CALCIUM 9.6 mg/dL (8.7-10.4)
[2024-05-02 06:04] LABS: CREATININE 1.1 mg/dL (0.6-1.0); GLUCOSE 102 mg/dL (70-105); UREA NITROGEN BLOOD 12 mg/dL (9-23)
[2024-05-02 06:05] LABS: ALANINE AMINOTRANSFERASE 18 IU/L (10-49)
[2024-05-02 06:06] LABS: ALBUMIN 3.2 g/dL (3.2-4.8); ASPARTATE AMINOTRANSFERASE 14 IU/L (<34)
[2024-05-02 06:07] LABS: BILIRUBIN TOTAL 0.4 mg/dL (0.1-1.0); PROTEIN TOTAL 6.3 g/dL (6.0-8.3)
[2024-05-02 08:00] VITALS: BP 148/65; PULSE 60; RESP 20; TEMP 36.114; O2SAT 100
[2024-05-02 20:00] VITALS: BP 124/76; PULSE 66; RESP 18; TEMP 36.72516; O2SAT 97
[2024-05-03 08:00] VITALS: BP 134/54; PULSE 75; RESP 20; TEMP 36.50292; O2SAT 100
[2024-05-03 20:00] VITALS: BP 131/52; PULSE 71; RESP 18; TEMP 36.3918; O2SAT 100
[2024-05-04 08:00] VITALS: BP 117/49; PULSE 66; RESP 20; TEMP 36.89184; O2SAT 96
[2024-05-04 20:00] VITALS: BP 130/46; PULSE 65; RESP 18; TEMP 36.61404; O2SAT 98
[2024-05-05 08:00] VITALS: BP 120/47; PULSE 63; RESP 20; TEMP 36.3918; O2SAT 100
[2024-05-05] MEDS: LIDOCAINE 5% PATCH TOP SCH (09:23)
[2024-05-05 13:51] LABS: BASOPHILS % 0.5 % (0.0-2.0); EOSINOPHILS % 1.6 % (0.0-5.0); HEMATOCRIT. 40.2 % (36.0-48.0); HEMOGLOBIN. 12.7 g/dL (12.0-16.0); LYMPHOCYTES % 23.8 % (20.0-50.0); MEAN CORPUSCULAR HEMOGLOBIN 28.4 pg (28.0-32.0); MEAN CORPUSCULAR HGB CONC 31.6 g/dL (31.0-37.0); MEAN CORPUSCULAR VOLUME 89.8 fL (81.0-99.0); MEAN PLATELET VOLUME 8.9 fl (7.4-10.4); MONOCYTES % 8.3 % (2.0-8.0); NEUTROPHILS % 65.8 % (40.0-76.0); PLATELET 225 x1000/uL (130-400); RED BLOOD CELL COUNT 4.48 mill/uL (4.2-5.4); RED CELL DISTRIBUTION WIDTH 15.4 % (11.6-14.6); WHITE BLOOD COUNT 9.3 x1000/uL (4.5-11.0)
[2024-05-05 13:57] LABS: CARBON DIOXIDE 26 mEq/L (21-32); CHLORIDE 109 mEq/L (98-107); POTASSIUM 4.7 mEq/L (3.5-5.1); SODIUM 140 mEq/L (136-145)
[2024-05-05 13:58] LABS: CALCIUM 9.8 mg/dL (8.7-10.4)
[2024-05-05 14:02] LABS: CREATINE KINASE 63 IU/L (34-145)
[2024-05-05 14:03] LABS: CREATININE 1.1 mg/dL (0.6-1.0); GLUCOSE 84 mg/dL (70-105); UREA NITROGEN BLOOD 12 mg/dL (9-23)
[2024-05-05 20:00] VITALS: BP 132/72; PULSE 91; RESP 20; TEMP 36.22512; O2SAT 98
[2024-05-06 08:00] VITALS: BP 114/40; PULSE 64; RESP 20; TEMP 36.114; O2SAT 98
[2024-05-06] MEDS: DICLOFENAC SODIUM 1% GEL 50GM TOP SCH (17:00)
[2024-05-06 20:01] VITALS: BP 146/41; PULSE 72; RESP 19; TEMP 36.05844; O2SAT 99
[2024-05-07 08:00] VITALS: BP 122/42; PULSE 75; RESP 20; TEMP 36.72516; O2SAT 95
[2024-05-07] MEDS: APIXABAN 5 MG TABLET PO SCH (10:23)
[2024-05-07 20:00] VITALS: BP 135/48; PULSE 60; RESP 18; TEMP 36.55848; O2SAT 97
[2024-05-08 10:49] VITALS: BP 111/66; PULSE 71; RESP 18; TEMP 36.78072; O2SAT 100
[2024-05-08 20:00] VITALS: BP 128/49; PULSE 63; RESP 18; TEMP 36.55848; O2SAT 100
[2024-05-09 08:00] VITALS: BP 126/60; PULSE 75; RESP 17; TEMP 36.6696; O2SAT 100
[2024-05-09 16:39] LABS: BASOPHILS % 0.3 % (0.0-2.0); EOSINOPHILS % 1.6 % (0.0-5.0); HEMATOCRIT. 41.3 % (36.0-48.0); HEMOGLOBIN. 12.9 g/dL (12.0-16.0); LYMPHOCYTES % 17.9 % (20.0-50.0); MEAN CORPUSCULAR HEMOGLOBIN 27.9 pg (28.0-32.0); MEAN CORPUSCULAR HGB CONC 31.2 g/dL (31.0-37.0); MEAN CORPUSCULAR VOLUME 89.4 fL (81.0-99.0); MEAN PLATELET VOLUME 9.1 fl (7.4-10.4); MONOCYTES % 5.5 % (2.0-8.0); NEUTROPHILS % 74.7 % (40.0-76.0); PLATELET 265 x1000/uL (130-400); RED BLOOD CELL COUNT 4.62 mill/uL (4.2-5.4); RED CELL DISTRIBUTION WIDTH 15.4 % (11.6-14.6)
[2024-05-09 16:40] LABS: CALCIUM 10.2 mg/dL (8.7-10.4); POTASSIUM 3.8 mEq/L (3.5-5.1)
[2024-05-09 16:44] LABS: CREATININE 1.1 mg/dL (0.6-1.0)
[2024-05-09 20:00] VITALS: BP 113/59; PULSE 72; RESP 18; TEMP 37.2252; O2SAT 99
[2024-05-10 06:39] LABS: BASOPHILS % 0.3 % (0.0-2.0); EOSINOPHILS % 1.7 % (0.0-5.0); HEMATOCRIT. 36.9 % (36.0-48.0); HEMOGLOBIN. 12.1 g/dL (12.0-16.0); LYMPHOCYTES % 22.9 % (20.0-50.0); MEAN CORPUSCULAR HEMOGLOBIN 28.9 pg (28.0-32.0); MEAN CORPUSCULAR HGB CONC 32.9 g/dL (31.0-37.0); MEAN CORPUSCULAR VOLUME 87.9 fL (81.0-99.0); MEAN PLATELET VOLUME 8.6 fl (7.4-10.4); MONOCYTES % 7.4 % (2.0-8.0); NEUTROPHILS % 67.7 % (40.0-76.0); PLATELET 225 x1000/uL (130-400); WHITE BLOOD COUNT 9.3 x1000/uL (4.5-11.0)
[2024-05-10 08:00] VITALS: BP 127/41; PULSE 72; RESP 17; TEMP 36.33624; O2SAT 100
[2024-05-10 20:00] VITALS: BP 130/53; PULSE 64; RESP 18; TEMP 37.33632; O2SAT 100
[2024-05-11 08:00] VITALS: BP 146/54; PULSE 55; RESP 18; TEMP 36.3918; O2SAT 97
[2024-05-11 20:00] VITALS: BP 138/52; PULSE 72; RESP 18; TEMP 37.11408; O2SAT 99
[2024-05-12 08:00] VITALS: BP 132/40; PULSE 63; RESP 19; TEMP 36.72516; O2SAT 100
[2024-05-12 20:00] VITALS: BP 132/35; PULSE 64; RESP 20; TEMP 36.16956; O2SAT 99
[2024-05-13 08:00] VITALS: BP 103/37; PULSE 69; RESP 18; TEMP 36.28068; O2SAT 100
[2024-05-13 20:00] VITALS: BP 114/53; PULSE 74; RESP 20; TEMP 36.05844; O2SAT 99
[2024-05-14 08:00] VITALS: BP 130/76; RESP 18; TEMP 36.3918; O2SAT 98
[2024-05-14 20:00] VITALS: BP 116/37; PULSE 64; RESP 18; TEMP 37.00296; O2SAT 95
[2024-05-15] VITALS: BP 143/48; PULSE 64; RESP 18; TEMP 36.3918; O2SAT 96
[2024-05-15 04:00] VITALS: BP 128/42; PULSE 78; RESP 18; TEMP 36.50292; O2SAT 99
[2024-05-15 08:00] VITALS: BP 137/49; PULSE 61; RESP 20; TEMP 36.72516; O2SAT 98
[2024-05-15] MEDS: LIDOCAINE 5% PATCH TOP SCH (15:20)
[2024-05-15 20:00] VITALS: BP 123/71; PULSE 63; RESP 19; TEMP 36.28068; O2SAT 99
[2024-05-16 08:00] VITALS: BP 139/51; PULSE 61; RESP 20; TEMP 36.33624; O2SAT 99
[2024-05-16 09:34] LABS: BASOPHILS % 0.3 % (0.0-2.0); EOSINOPHILS % 1.6 % (0.0-5.0); HEMATOCRIT. 40.8 % (36.0-48.0); HEMOGLOBIN. 12.9 g/dL (12.0-16.0); LYMPHOCYTES % 30.6 % (20.0-50.0); MEAN CORPUSCULAR HEMOGLOBIN 28.3 pg (28.0-32.0); MEAN CORPUSCULAR HGB CONC 31.6 g/dL (31.0-37.0); MEAN CORPUSCULAR VOLUME 89.6 fL (81.0-99.0); MEAN PLATELET VOLUME 8.9 fl (7.4-10.4); MONOCYTES % 11.9 % (2.0-8.0); NEUTROPHILS % 55.6 % (40.0-76.0); PLATELET 199 x1000/uL (130-400); RED BLOOD CELL COUNT 4.55 mill/uL (4.2-5.4); RED CELL DISTRIBUTION WIDTH 15.1 % (11.6-14.6); WHITE BLOOD COUNT 7.1 x1000/uL (4.5-11.0)
[2024-05-16 10:00] LABS: CALCIUM 9.7 mg/dL (8.7-10.4); POTASSIUM 3.9 mEq/L (3.5-5.1)
[2024-05-16 10:06] LABS: CREATININE 1.1 mg/dL (0.6-1.0)
[2024-05-16 20:00] VITALS: BP 134/56; PULSE 64; RESP 18; TEMP 36.50292; O2SAT 100
[2024-05-17 08:00] VITALS: BP 127/54; PULSE 60; RESP 20; TEMP 36.44736; O2SAT 97
[2024-05-17 16:00] VITALS: BP 91/50; PULSE 90; RESP 20; TEMP 36.44736; O2SAT 96
[2024-05-17 20:00] VITALS: BP 117/60; PULSE 58; RESP 18; TEMP 36.50292; O2SAT 98
[2024-05-18 08:00] VITALS: BP 150/50; PULSE 60; RESP 20; TEMP 36.6696; O2SAT 98
[2024-05-18 20:00] VITALS: BP 131/71; PULSE 63; RESP 18; TEMP 36.61404; O2SAT 98
[2024-05-19 08:00] VITALS: BP 138/54; PULSE 52; RESP 18; TEMP 36.50292; O2SAT 97
[2024-05-20 09:51] VITALS: BP 137/38; PULSE 69; RESP 18; TEMP 36.22512; O2SAT 100
[2024-05-20 20:00] VITALS: BP 133/64; PULSE 57; RESP 20; TEMP 36.22512; O2SAT 99
[2024-05-21 07:28] LABS: BASOPHILS % 0.4 % (0.0-2.0); EOSINOPHILS % 1.9 % (0.0-5.0); HEMATOCRIT. 36.4 % (36.0-48.0); HEMOGLOBIN. 11.8 g/dL (12.0-16.0); LYMPHOCYTES % 37.6 % (20.0-50.0); MEAN CORPUSCULAR HEMOGLOBIN 28.7 pg (28.0-32.0); MEAN CORPUSCULAR HGB CONC 32.5 g/dL (31.0-37.0); MEAN CORPUSCULAR VOLUME 88.2 fL (81.0-99.0); MEAN PLATELET VOLUME 8.6 fl (7.4-10.4); MONOCYTES % 7.3 % (2.0-8.0); NEUTROPHILS % 52.8 % (40.0-76.0); PLATELET 195 x1000/uL (130-400); RED BLOOD CELL COUNT 4.12 mill/uL (4.2-5.4); RED CELL DISTRIBUTION WIDTH 14.7 % (11.6-14.6)
[2024-05-21 07:41] LABS: CHLORIDE 111 mEq/L (98-107); POTASSIUM 4.1 mEq/L (3.5-5.1); SODIUM 143 mEq/L (136-145)
[2024-05-21 07:42] LABS: CALCIUM 9.3 mg/dL (8.7-10.4); CARBON DIOXIDE 25 mEq/L (21-32)
[2024-05-21 07:47] LABS: GLUCOSE 104 mg/dL (70-105); UREA NITROGEN BLOOD 11 mg/dL (9-23)
[2024-05-21 08:00] VITALS: BP 138/44; PULSE 54; RESP 18; TEMP 36.33624; O2SAT 98
[2024-05-21 20:00] VITALS: BP 126/52; PULSE 54; RESP 18; TEMP 35.94732; O2SAT 98
[2024-05-22 08:00] VITALS: BP 123/40; PULSE 61; RESP 18; TEMP 36.28068; O2SAT 100
[2024-05-22 19:56] VITALS: BP 126/53; PULSE 62; RESP 20; TEMP 36.44736; O2SAT 99
[2024-05-23 08:00] VITALS: BP 105/55; PULSE 64; RESP 17; TEMP 36.3918; O2SAT 98
[2024-05-23 19:38] VITALS: BP 139/48; PULSE 64; RESP 20; TEMP 36.22512; O2SAT 99
[2024-05-24 08:00] VITALS: BP 102/51; PULSE 60; RESP 18; TEMP 36.114; O2SAT 98
[2024-05-24 19:49] VITALS: BP 133/42; PULSE 67; RESP 20; TEMP 36.55848; O2SAT 98
[2024-05-25 08:00] VITALS: BP 131/53; PULSE 55; RESP 17; TEMP 36.00288; O2SAT 98
[2024-05-25 20:00] VITALS: BP 120/57; PULSE 65; RESP 18; TEMP 36.72516; O2SAT 96
[2024-05-26 08:00] VITALS: BP 135/51; PULSE 59; RESP 20; TEMP 35.89176; O2SAT 98
[2024-05-26] MEDS: APIXABAN 5 MG TABLET PO SCH (08:17)
[2024-05-26 20:00] VITALS: BP 122/67; PULSE 63; RESP 17; TEMP 37.11408; O2SAT 98
[2024-05-27 08:00] VITALS: BP 116/40; PULSE 67; RESP 18; TEMP 36.6696; O2SAT 98
[2024-05-27 20:00] VITALS: BP 136/44; PULSE 85; RESP 18; TEMP 36.78072; O2SAT 96
[2024-05-28 08:00] VITALS: BP 121/55; PULSE 80; RESP 18; TEMP 36.22512; O2SAT 96
[2024-05-28] MEDS ORDERED: HYDROCODONE/ACETAMINOPHEN 5/325MG TABLET PO PRN (10:45)
[2024-05-28 20:00] VITALS: BP 123/39; PULSE 60; RESP 18; TEMP 36.72516; O2SAT 96
[2024-05-29 06:40] LABS: CHLORIDE 113 mEq/L (98-107); SODIUM 144 mEq/L (136-145)
[2024-05-29 06:41] LABS: CALCIUM 9.3 mg/dL (8.7-10.4); CARBON DIOXIDE 25 mEq/L (21-32)
[2024-05-29 06:47] LABS: GLUCOSE 100 mg/dL (70-105); UREA NITROGEN BLOOD 12 mg/dL (9-23)
[2024-05-29 07:53] LABS: BASOPHILS % 0.4 % (0.0-2.0); EOSINOPHILS % 2.1 % (0.0-5.0); HEMATOCRIT. 35.9 % (36.0-48.0); HEMOGLOBIN. 11.6 g/dL (12.0-16.0); LYMPHOCYTES % 28.2 % (20.0-50.0); MEAN CORPUSCULAR HEMOGLOBIN 28.6 pg (28.0-32.0); MEAN CORPUSCULAR HGB CONC 32.4 g/dL (31.0-37.0); MEAN CORPUSCULAR VOLUME 88.3 fL (81.0-99.0); MEAN PLATELET VOLUME 9.2 fl (7.4-10.4); MONOCYTES % 7.8 % (2.0-8.0); NEUTROPHILS % 61.5 % (40.0-76.0); PLATELET 220 x1000/uL (130-400); RED BLOOD CELL COUNT 4.07 mill/uL (4.2-5.4); RED CELL DISTRIBUTION WIDTH 14.9 % (11.6-14.6); WHITE BLOOD COUNT 7.9 x1000/uL (4.5-11.0)
[2024-05-29 08:00] VITALS: BP 127/42; PULSE 82; RESP 18; TEMP 36.114; O2SAT 97
[2024-05-29 20:00] VITALS: BP 144/64; PULSE 88; RESP 20; TEMP 36.50292; O2SAT 66
[2024-05-30 08:00] VITALS: BP 139/53; PULSE 82; RESP 16; TEMP 35.61396; O2SAT 100
[2024-05-30] MEDS ORDERED: KETOROLAC 30MG/ML VIAL IV ONE (10:15)
[2024-05-30] MEDS: ETHYL CHLORIDE CAN TOP NR (12:00)
[2024-05-30] MEDS: LIDOCAINE HCL 1% 20ML VIAL INFIL NR (12:00)
[2024-05-30] MEDS: KETOROLAC 15MG/ML VIAL IV NR ×2 (13:41)
[2024-05-30 19:38] VITALS: BP 143/47; PULSE 59; RESP 20; TEMP 36.16956; O2SAT 99
[2024-05-31 08:00] VITALS: BP 129/49; PULSE 55; RESP 20; TEMP 36.1; O2SAT 100
[2024-05-31 20:00] VITALS: BP 140/44; PULSE 83; RESP 18; TEMP 36.7; O2SAT 98
[2024-06-01 08:00] VITALS: BP 138/50; PULSE 51; RESP 18; TEMP 36.6; O2SAT 98
[2024-06-01 20:00] VITALS: BP 132/51; PULSE 62; RESP 18; TEMP 37.1; O2SAT 99
[2024-06-02 08:00] VITALS: BP 140/52; PULSE 52; RESP 20; TEMP 36.2; O2SAT 99
[2024-06-02 20:00] VITALS: PULSE 58; RESP 19; TEMP 36.3; O2SAT 99
[2024-06-03 08:00] VITALS: BP 131/43; PULSE 60; RESP 20; TEMP 36.2; O2SAT 97
[2024-06-03 20:00] VITALS: BP 145/48; PULSE 59; RESP 19; TEMP 36.7; O2SAT 99
[2024-06-03] MEDS: DICLOFENAC SODIUM 1% GEL 50GM TOP SCH (21:00)
[2024-06-04 08:00] VITALS: BP 155/52; PULSE 61; RESP 20; TEMP 36.2; O2SAT 100
[2024-06-04 20:00] VITALS: BP 134/46; PULSE 63; RESP 18; TEMP 36.2; O2SAT 97
[2024-06-05 08:00] VITALS: BP 142/40; PULSE 59; RESP 20; TEMP 36.3; O2SAT 99
[2024-06-05] MEDS: ASPIRIN 81MG EC TABLET PO SCH (14:40)
[2024-06-05 20:00] VITALS: BP 151/64; PULSE 76; RESP 18; TEMP 36.2; O2SAT 96
[2024-06-06 08:00] VITALS: BP 136/50; PULSE 57; RESP 19; TEMP 36.6; O2SAT 98
[2024-06-06 18:49] LABS: BASOPHILS % 0.3 % (0.0-2.0); EOSINOPHILS % 1.4 % (0.0-5.0); HEMATOCRIT. 37.8 % (36.0-48.0); HEMOGLOBIN. 11.8 g/dL (12.0-16.0); LYMPHOCYTES % 15.2 % (20.0-50.0); MEAN CORPUSCULAR HEMOGLOBIN 28.3 pg (28.0-32.0); MEAN CORPUSCULAR HGB CONC 31.2 g/dL (31.0-37.0); MEAN CORPUSCULAR VOLUME 90.9 fL (81.0-99.0); MEAN PLATELET VOLUME 8.8 fl (7.4-10.4); NEUTROPHILS % 76.1 % (40.0-76.0); PLATELET 195 x1000/uL (130-400); RED BLOOD CELL COUNT 4.16 mill/uL (4.2-5.4); RED CELL DISTRIBUTION WIDTH 15.2 % (11.6-14.6)
[2024-06-06 19:16] LABS: CALCIUM 9.7 mg/dL (8.7-10.4)
[2024-06-06 19:21] LABS: CREATININE 1.1 mg/dL (0.6-1.0)
[2024-06-06 20:24] VITALS: BP 136/62; PULSE 91; RESP 20; TEMP 37; O2SAT 100
[2024-06-07 08:00] VITALS: BP 135/50; PULSE 66; RESP 20; TEMP 36.3; O2SAT 98
[2024-06-07 20:00] VITALS: BP 137/54; PULSE 63; RESP 20; TEMP 36.6; O2SAT 97
[2024-06-08 08:00] VITALS: BP 134/40; PULSE 75; RESP 20; TEMP 36.1; O2SAT 98
[2024-06-08 20:00] VITALS: BP 131/49; PULSE 72; RESP 19; TEMP 36.4; O2SAT 96
[2024-06-09 08:00] VITALS: BP 130/50; PULSE 56; RESP 20; TEMP 36.1; O2SAT 99
[2024-06-09 20:00] VITALS: BP 136/52; PULSE 69; RESP 20; TEMP 36.5; O2SAT 99
[2024-06-10 07:39] LABS: CHLORIDE 111 mEq/L (98-107); SODIUM 142 mEq/L (136-145)
[2024-06-10 07:40] LABS: CARBON DIOXIDE 23 mEq/L (21-32)
[2024-06-10 07:41] LABS: CALCIUM 9.3 mg/dL (8.7-10.4)
[2024-06-10 07:45] LABS: GLUCOSE 96 mg/dL (70-105); UREA NITROGEN BLOOD 12 mg/dL (9-23)
[2024-06-10 07:47] LABS: BASOPHILS % 0.5 % (0.0-2.0); EOSINOPHILS % 3.1 % (0.0-5.0); HEMATOCRIT. 36.3 % (36.0-48.0); HEMOGLOBIN. 11.5 g/dL (12.0-16.0); LYMPHOCYTES % 21.2 % (20.0-50.0); MEAN CORPUSCULAR HEMOGLOBIN 28.4 pg (28.0-32.0); MEAN CORPUSCULAR HGB CONC 31.6 g/dL (31.0-37.0); MONOCYTES % 7.3 % (2.0-8.0); NEUTROPHILS % 67.9 % (40.0-76.0); PLATELET 186 x1000/uL (130-400); RED BLOOD CELL COUNT 4.03 mill/uL (4.2-5.4); RED CELL DISTRIBUTION WIDTH 15.1 % (11.6-14.6); WHITE BLOOD COUNT 8.9 x1000/uL (4.5-11.0)
[2024-06-10 08:00] VITALS: BP 122/47; PULSE 66; RESP 18; TEMP 36.5; O2SAT 96
[2024-06-10 20:00] VITALS: BP 126/59; PULSE 68; RESP 18; TEMP 36.6; O2SAT 98
[2024-06-11 08:00] VITALS: BP 174/34; PULSE 68; RESP 17; TEMP 35.9; O2SAT 97
[2024-06-11] MEDS: ASPIRIN 81MG EC TABLET PO SCH (12:25)
[2024-06-11 20:00] VITALS: BP 146/50; PULSE 58; RESP 19; TEMP 36.8; O2SAT 97
[2024-06-12 08:00] VITALS: BP 146/44; PULSE 57; RESP 18; TEMP 36.1; O2SAT 96
[2024-06-12 20:00] VITALS: BP 126/66; PULSE 62; RESP 18; TEMP 36.6; O2SAT 97
[2024-06-13 08:00] VITALS: BP 130/47; PULSE 60; RESP 18; TEMP 36.6; O2SAT 95
[2024-06-13 20:00] VITALS: BP 137/76; PULSE 78; RESP 18; TEMP 37; O2SAT 99
[2024-06-14 08:00] VITALS: BP 136/48; PULSE 56; RESP 20; TEMP 36.2; O2SAT 98
[2024-06-14 20:00] VITALS: BP 129/60; PULSE 70; RESP 20; TEMP 36.4; O2SAT 99
[2024-06-15 08:00] VITALS: BP 137/57; PULSE 77; RESP 20; TEMP 36.5; O2SAT 98
[2024-06-15 20:00] VITALS: BP 144/48; PULSE 66; RESP 17; TEMP 36.3; O2SAT 97
[2024-06-16 08:00] VITALS: BP 134/48; PULSE 86; RESP 18; TEMP 36.2; O2SAT 97
[2024-06-16] MEDS ORDERED: ASPI-1406 PO (11:10)
[2024-06-16] MEDS ORDERED: LIDO5CRE26 TP (11:12)
[2024-06-16 12:20] VITALS: BP 134/48; PULSE 86; TEMP 97.1; O2SAT 97
== END 2024-06-16 18:36 | disposition home health service (06) | DRG 558 ==
PROVIDERS: ADMIT Physical Medicine & Rehabilitation Spinal Cord Injury Medicine; ATTEND Family Medicine Adult Medicine
DX: M62.82 Rhabdomyolysis (principal); G82.20 Paraplegia, unspecified; N17.9 Acute kidney failure, unspecified; N39.0 Urinary tract infection, site not specified; Z68.42 Body mass index [BMI] 45.0-49.9, adult; E55.9 Vitamin D deficiency, unspecified; M47.812 Spondylosis without myelopathy or radiculopathy, cervical region; M43.16 Spondylolisthesis, lumbar region; E66.01 Morbid (severe) obesity due to excess calories; M17.0 Bilateral primary osteoarthritis of knee; G89.29 Other chronic pain; M48.061 Spinal stenosis, lumbar region without neurogenic claudication; R53.81 Other malaise; M54.2 Cervicalgia; I95.1 Orthostatic hypotension; I51.7 Cardiomegaly; M71.21 Synovial cyst of popliteal space [Baker], right knee; R74.8 Abnormal levels of other serum enzymes; M54.50 Low back pain, unspecified; M48.02 Spinal stenosis, cervical region; M16.0 Bilateral primary osteoarthritis of hip; R60.0 Localized edema; R73.9 Hyperglycemia, unspecified; Z60.2 Problems related to living alone; D72.829 Elevated white blood cell count, unspecified; Z88.0 Allergy status to penicillin; Z91.81 History of falling; Z86.718 Personal history of other venous thrombosis and embolism; Z87.891 Personal history of nicotine dependence; Z79.899 Other long term (current) drug therapy; Z79.01 Long term (current) use of anticoagulants; Z79.82 Long term (current) use of aspirin; Z88.8 Allergy status to other drugs, medicaments and biological substances
CPT/HCPCS: 36415; 72141; 72146; 72192; 73700; 80048; 80053; 82550; 83735; 84134; 85025; 93005; 93306; 93970; 97110; 97116; 97150; 97162; 97166; 97530; 97535; 97542; A4606; A4663; A6261; C1893; J1650; J1885; J3420; J3490